=== PATIENT | male | born 1990 | race American Indian/Alaskan Native ===

== ENCOUNTER 2020-10-30 14:27 | Emergency (ER) | payer OTHER ==
[~2020-10-30] VITALS: Ht 175.3 cm; Wt 63.5 kg
[~2020-10-30 14:27] MED LIST: NORCO 5-325 TA1 EACH PO
[2020-10-30] MEDS ORDERED: ONDANSETRON ODT4 MG PO (18:43)
== END 2020-10-30 18:56 | disposition home or self-care (01) ==
LOC: ED 14:27
DX: K29.20 Alcoholic gastritis without bleeding (principal); K22.6 Gastro-esophageal laceration-hemorrhage syndrome; Z88.0 Allergy status to penicillin
CPT/HCPCS: 74177; 80053; 83690; 85025; 99284-25; J1170; J2405; J7030